=== PATIENT | female | born 1960 | race Caucasian/White ===

== ENCOUNTER 2016-08-25 20:25 | Observation (INO) | payer BC ==
[~2016-08-25] VITALS: Ht 165.1 cm; Wt 74.9 kg
[2016-08-25 21:05] LABS: HEMATOCRIT 40.5 % (36.0-46.0); MCH 31.2 PG (29.0-34.0); MCHC 32.8 G/DL (30.0-36.0); MCV 95.1 FL (83-99); MEAN PLAT.VOLUME 9.6 uM^3 (9.5-12.4); PLATELET COUNT 353 K/uL (156-360); RBC DIS.WIDTH-CV 13.3 % (11.8-14.6); RBC DIS.WIDTH-SD 46.7 % (39-53); RED BLOOD COUNT 4.26 M/uL (3.80-5.20); WHITE BLOOD COUNT 9.5 K/uL (4.1-10.2)
[2016-08-25 21:13] LABS: CHLORIDE 103 mEq/L (99-109); SODIUM 142 mEq/L (136-147)
[2016-08-25 21:14] LABS: GLUCOSE 101 mg/dL (70-99)
[2016-08-25 21:16] LABS: ANION GAP 9 MEQ/L (2-14)
[2016-08-25 21:18] LABS: GFR ESTIMATE (CALCULATED) > 59 mL/min/
[2016-08-25 21:19] LABS: UREA NITROGEN (BUN) 10 mg/dL (9-23)
[2016-08-25 21:26] LABS: TROP-I INTERPRETATION NEGATIVE; TROPONIN-I < 0.01 ng/mL (0.0-0.30)
[2016-08-25 21:30] LABS: LIPASE 35 U/L (1.0-51.0)
[2016-08-25 21:46] LABS: TOTAL BILIRUBIN 0.9 mg/dL (0.0-1.0)
[2016-08-25 21:47] LABS: ALKALINE PHOSPHATASE 70 IU/L (3-129)
[2016-08-25] MEDS ORDERED: ATENOLOL25 MG PO (22:43)
[2016-08-25] MEDS ORDERED: PLAQUENIL200 MG PO (22:44)
[2016-08-25] MEDS ORDERED: FOSAMAX70 MG PO (22:44)
[2016-08-25] MEDS ORDERED: IRON325 M1 PO (22:44)
[2016-08-25] MEDS ORDERED: TUMS500 MG PO (22:45)
[2016-08-25] MEDS ORDERED: ZANTAC150 MG PO (22:45)
[2016-08-25] MEDS ORDERED: NATURE'S TEARS15 M1 BOTH EYES (22:45)
[2016-08-25] MEDS ORDERED: PEPTO BISMOL240 ML PO (22:45)
[2016-08-25] MEDS ORDERED: THERATRUM COMP1 EAC3 PO (22:47)
[2016-08-25 22:58] LABS: PROTHROMBIN TIME 10.3 (9.2-11.2)
[2016-08-26 01:08] VITALS: BP 187/85
[2016-08-26 08:14] VITALS: BP 138/86
[2016-08-26 19:01] VITALS: BP 127/68
[2016-08-26 22:40] VITALS: BP 125/64
[2016-08-27 02:55] VITALS: BP 120/58
[2016-08-27 07:01] VITALS: BP 144/68
[2016-08-27] MEDS ORDERED: NORCO 5/3251 TABLET PO (07:58)
== END 2016-08-27 13:03 | disposition home or self-care (01) ==
LOC: EME 20:25 → EDOF 23:51 → 5EAST 23:51
PROVIDERS: Emergency Medicine
PROC: 0FT44ZZ Resection of Gallbladder, Percutaneous Endoscopic Approach (ICD-10-PCS; principal; 2016-08-26)
DX: K80.00 Calculus of gallbladder with acute cholecystitis without obstruction (principal); K21.9 Gastro-esophageal reflux disease without esophagitis; M06.9 Rheumatoid arthritis, unspecified
CPT/HCPCS: 71020; 76705; 80048; 80053; 83690; 84484; 85027; 85610; 85730; 86850; 86900; 86901; 88304; 93005; 99281; 99283; C9113; G0378; J0744; J1100; J1170; J1200; J1650; J2250; J2405; J2543; J2710; J2765; J3010; S0030